=== PATIENT | female | born 1990 | race Caucasian/White ===

== ENCOUNTER 2021-05-25 02:01 | Emergency (ER) | payer BC, MEDICAID, SELFPAY ==
[2021-05-25 02:08] VITALS: BP 149/85; PULSE 79; RESP 22; TEMP 36.1; O2SAT 97; BMI 37.8
--- NOTE | 2021-05-25 02:17 | CTR_ITS ---
PROCEDURE INFORMATION: Exam: CT Abdomen And Pelvis With Contrast Exam date and time: 05/25/2021 3:13 AM Age: 31 years old Clinical indication: Abdominal pain; Generalized; Additional info: Abd pain TECHNIQUE: Imaging protocol: Computed tomography of the abdomen and pelvis with contrast. Radiation optimization: All CT scans at this facility use at least one of these dose optimization techniques: automated exposure control; mA and/or kV adjustment per patient size (includes targeted exams where dose is matched to clinical indication); or iterative reconstruction. Contrast material: OMNI 300; Contrast volume: 95 ml; Contrast route: INTRAVENOUS (IV); COMPARISON: No relevant prior studies available. RADIATION DOSE METRICS: Total DLP (mGy-cm): 1698.24 FINDINGS: Lungs: No consolidation. Pleuroparenchymal scarring noted in the right lung base. There is an irregular nodule in the right middle lobe measuring approximately 1.4 x 0.7 x 0.8 cm. There is 2 tiny nodules in the posterior left lower lobe, measuring 0.6 cm and 0.3 cm. No pleural effusion or pneumothorax. Liver: Normal. No mass. Gallbladder and bile ducts: Normal. No calcified stones. No ductal dilation. Pancreas: Normal. No ductal dilation. Spleen: Normal. No splenomegaly. Adrenal glands: Normal. No mass. Kidneys and ureters: There is a 0.4 cm obstructing stone in the left UVJ, resulting in mild hydronephrosis and delayed nephrogram. Slight stranding of the left perirenal fat is noted. The right kidney is unremarkable. Stomach and bowel: Unremarkable. No obstruction. No mucosal thickening. Appendix: No evidence of appendicitis. Intraperitoneal space: Unremarkable. No free air. No significant fluid collection. Vasculature: Unremarkable. No abdominal aortic aneurysm. Lymph nodes: Unremarkable. No enlarged lymph nodes. Urinary bladder: Unremarkable as visualized. Reproductive: Unremarkable as visualized. Bones/joints: Unremarkable. No acute fracture. Soft tissues: Unremarkable. CT/CT abdomen pelvis w con* [id number] IMPRESSION: 1. Left UVJ obstructing stone, resulting in mild hydronephrosis and delayed nephrogram. 2. Bilateral pulmonary nodules. Further evaluation with dedicated CT chest is recommended.
--- NOTE | 2021-05-25 02:18 | W.ED.ABDPA2 ---
HPI - Abdominal Pain General: Chief Complaint: Abdominal Pain Stated Complaint: abdominal pain Time Seen by Provider: 05/25/21 02:04 Source: patient Mode of arrival: ambulatory Limitations: no limitations History of Present Illness: 31-year-old female states she has been having epigastric abdominal pain also bandlike pain around her upper abdomen that started 4 hours ago. States she had multiple episodes of vomiting the pain is been cramping in nature rates it a 7 out of 10 she denies any diarrhea denies any worsening improving factors. No history of any abdominal surgeries. Denies any fevers. Associated Symptoms: Reports nausea and vomiting; Denies chills, dysuria and fever(s) Related Data: Date of Last Menstrual Period: 05/18/21 Review of Systems Const: Denies: fever(s), chills, body aches or change in appetite Eyes: Denies: blurry vision or eye discomfort ENMT: Denies: throat pain or dental pain Card: Denies: chest pain Resp: Denies: dyspnea GI: Reports: abdominal pain, nausea and vomiting : Denies: dysuria Musc: Denies: neck pain or back pain Skin/Breast: Denies: rash Neuro: Denies: headache(s) Psych: Denies: depression Jerad/Lymph: Denies: easy bruising All/Imm: Denies: urticaria PFSH ED PFSH: Social History Smoking and tobacco status: current every day smoker Female Reproductive History: Date of last menstrual period: 05/18/21 Physical Exam Const: COMMON NORMALS: no acute distress, patient oriented x3 and healthy appearing HENMT: COMMON NORMALS: normocephalic and atraumatic HEAD & SCALP: normocephalic and atraumatic Eye: COMMON NORMALS: Equal, round and reactive pupils present and EOMs intact bilaterally PUPIL: Yes Equal, round and reactive pupils present Neck/C-Spine: COMMON NORMALS: full ROM and supple Chest: COMMONS NORMALS: normal inspection of the chest and normal palpation of entire chest wall Resp: COMMON NORMALS: normal respiratory effort, No retractions, No use of accessory muscles and clear to auscultation bilaterally AUSCULTATION: clear to auscultation bilaterally Cardio: COMMON NORMALS: regular rate, regular rhythm and No murmurs present (Cardio) RATE: regular rate RHYTHM: regular rhythm GI: COMMON NORMALS: Normal to inspection, nondistended, normoactive bowel sounds present, Soft to palpation and no masses PALPATION: Yes Soft to palpation OTHER: Epigastric tenderness Extremity: COMMON NORMALS: normal to inspection and full ROM Neuro: COMMON NORMALS: patient oriented x3, moves all extremities and no focal motor deficits Psych: COMMON NORMALS: mental status grossly normal, Normal thought process present and cooperative THOUGHT PROCESS: Normal thought process present Skin: COMMON NORMALS: no rashes or lesions noted and no wounds GENERAL SKIN EXAM: no rashes or lesions noted Course Vital Signs: Vital signs: Vital Signs Temperature 97.0 F L 05/25/21 02:08 Pulse Rate 62 05/25/21 04:30 Respiratory Rate 15 05/25/21 04:30 Blood Pressure 107/65 05/25/21 04:30 Pulse Oximetry 96 05/25/21 04:30 MDM - Abdominal Pain Medical Decision Making Patient presents here with abdominal pain CT scan does show a kidney stone likely causing her pain. Pain is improved here will prescribe her [place] for home on Zofran did inform her pulmonary nodules as well she is to follow-up with pulmonology as well. Return if worsening. Lab Data : 05/25/21 02:24 05/25/21 02:24 Labs/Radiology: Radiology Impressions Abdomen/Pelvis CT 05/25/21 02:17 IMPRESSION: 1. Left UVJ obstructing stone, resulting in mild hydronephrosis and delayed nephrogram. 2. Bilateral pulmonary nodules. Further evaluation with dedicated CT chest is recommended. Laboratory Results WBC 11.6 10^3/uL (4.0-10.0) H 05/25/21 02:24 RBC 4.59 10^6/uL (4.1-5.3) 05/25/21 02:24 Hgb 14.9 g/dL (11.5-15.3) 05/25/21 02:24 Hct 43.1 % (37.0-47.0) 05/25/21 02:24 MCV 93.9 fl (81-99) 05/25/21 02:24 MCH 32.5 pg (28.0-34.0) 05/25/21 02:24 MCHC 34.6 g/dL (30.0-36.0) 05/25/21 02:24 RDW 13.2 % (12.1-15.1) 05/25/21 02:24 Plt Count 362 10^3/cmm (130-400) 05/25/21 02:24 MPV 10.2 fL (7.4-10.4) 05/25/21 02:24 Neut % (Auto) 59.5 % 05/25/21 02:24 Lymph % (Auto) 29.4 % 05/25/21 02:24 [place] % (Auto) 8.7 % 05/25/21 02:24 Eos % (Auto) 1.6 % 05/25/21 02:24 Baso % (Auto) 0.5 % 05/25/21 02:24 Neut # (Auto) 6.87 10^3/uL (1.8-7.7) 05/25/21 02:24 Lymph # (Auto) 3.4 10^3/uL (0.8-4.8) 05/25/21 02:24 [place] # (Auto) 1.0 10^3/uL (0.2-0.9) H 05/25/21 02:24 Eos # (Auto) 0.2 10^3/uL (0.0-0.8) 05/25/21 02:24 Baso # (Auto) 0.1 10^3/uL (0.0-0.1) 05/25/21 02:24 Nucleated RBC % (auto) 0 % 05/25/21 02:24 Nucleated RBCs # 0.0 /100WBC 05/25/21 02:24 Sodium 139 mmol/L (136-145) 05/25/21 02:24 Potassium 3.4 mmol/L (3.5-5.1) L 05/25/21 02:24 Chloride 102 mmol/L (98-107) 05/25/21 02:24 Carbon Dioxide 23 mmol/L (22-29) 05/25/21 02:24 Anion Gap 17.4 (5-19) 05/25/21 02:24 BUN 9 mg/dL (6-20) 05/25/21 02:24 Creatinine 1.0 mg/dL (0.5-0.9) H 05/25/21 02:24 GFR Calculation 64.7 mL/min (90-130) L 05/25/21 02:24 Glucose 129 mg/dL (65-115) H 05/25/21 02:24 Calculated Osmolality 288 mOsm/kg (285-295) 05/25/21 02:24 Calcium 10.1 mg/dL (8.5-10.5) 05/25/21 02:24 Total Bilirubin 0.3 mg/dL (0.15-1.2) 05/25/21 02:24 AST 17 U/L (0-32) 05/25/21 02:24 ALT 17 U/L (0-33) 05/25/21 02:24 Alkaline Phosphatase 120 IU/L (35-105) H 05/25/21 02:24 Total Protein 7.1 g/dL (6.6-8.7) 05/25/21 02:24 Albumin 4.6 g/dL (3.5-5.2) 05/25/21 02:24 Globulin 2.5 g/dL (1.3-4.6) 05/25/21 02:24 Lipase 19 U/L (13-60) 05/25/21 02:24 HCG, Qual Negative (Negative) 05/25/21 02:24 Urine Color Yellow (Yellow) 05/25/21 03:06 Urine Appearance Clear (CLEAR) 05/25/21 03:06 Urine pH 5 (5-7) 05/25/21 03:06 Ur Specific [place] 1.025 (1.005-1.030) 05/25/21 03:06 Urine Protein Neg (Negative) 05/25/21 03:06 Urine Glucose (UA) Norm (Normal) 05/25/21 03:06 Urine Ketones Negative (Negative) 05/25/21 03:06 Urine Blood 3+ (Negative) H 05/25/21 03:06 Urine Nitrate Negative (Negative) 05/25/21 03:06 Urine Bilirubin Neg (Negative) 05/25/21 03:06 Urine Urobilinogen 1 mg/dL (Negative) H 05/25/21 03:06 Ur Leukocyte Esterase Negative (Negative) 05/25/21 03:06 Urine RBC 15-25 /hpf (0-2) H 05/25/21 03:06 Urine WBC 10-15 /hpf (0-5) H 05/25/21 03:06 Ur Squamous Epith Cells 10-15 /hpf (0-5) H 05/25/21 03:06 Amorphous Sediment Not Reportable 05/25/21 03:06 Urine Bacteria Trace /hpf (NONE) 05/25/21 03:06 Urine Mucus 2+ /hpf 05/25/21 03:06 Discharge Plan Discharge Patient Disposition: Home Clinical Impression: Kidney stone, Pulmonary nodule Prescriptions: New hydrocodone-acetaminophen 5-325 mg tablet 1 tab PO Q6H PRN (Reason: pain) Qty: 14 0RF ondansetron 4 mg tablet,disintegrating 4 mg PO Q6H PRN (Reason: nausea and vomiting) Qty: 14 0RF Discharge Orders: Discharge ED (Routine); Ordered 05/25/21 Ordered By: Molina Lino Referrals: Perfecto Kimble MD [Physician] - 1-3 days Gregor Grider MD [Physician] - 1-3 days Discharge Diet: Advance as tolerated Discharge Activity: Resume usual activity Patient Instructions: Kidney Stones (ED), Pulmonary Nodules (ED), Opioid Safety Coding Level of Care Code ED Class C Driver for Chg Fwd Exam Comprehensive
[2021-05-25 02:22] VITALS: BP 145/97; PULSE 62; RESP 18; O2SAT 99
[2021-05-25] MEDS: ondansetron 2 mg/ML SDV 2 mL 4 MG IVP (02:39)
[2021-05-25 02:40] VITALS: RESP 19; O2SAT 97
[2021-05-25] MEDS: morphine 4 mg/mL SDV 1 mL IVP (02:40)
[2021-05-25] MEDS: sodium chloride 0.9% 1,000 ML 999 ML IV (02:40)
[2021-05-25 02:46] LABS: Basophils # 0.1 10^3/uL (0.0-0.1); Basophils % 0.5 %; Eosinophils # 0.2 10^3/uL (0.0-0.8); Eosinophils % 1.6 %; Hematocrit 43.1 % (37.0-47.0); Hemoglobin 14.9 g/dL (11.5-15.3); Lymphocytes # 3.4 10^3/uL (0.8-4.8); Lymphocytes % 29.4 %; Mean Corpuscular HGB Conc 34.6 g/dL (30.0-36.0); Mean Corpuscular Hemoglobin 32.5 pg (28.0-34.0); Mean Corpuscular Volume 93.9 fl (81-99); Mean Platelet Volume 10.2 fL (7.4-10.4); Monocytes % 8.7 %; Neutrophils # 6.87 10^3/uL (1.8-7.7); Neutrophils % 59.5 %; Nucleated Red Blood Cells % 0 %; Platelet Count 362 10^3/cmm (130-400); Red Blood Count 4.59 10^6/uL (4.1-5.3); Red Cell Distribution Width 13.2 % (12.1-15.1); White Blood Count 11.6 10^3/uL (4.0-10.0)
[2021-05-25 02:57] LABS: HCG, Serum Qual Negative (Negative)
[2021-05-25 03:03] LABS: Alanine Aminotransferase 17 U/L (0-33); Albumin Level 4.6 g/dL (3.5-5.2); Alkaline Phosphatase 120 IU/L (35-105); Anion Gap 17.4 (5-19); Aspartate Amino Transferase 17 U/L (0-32); Blood Urea Nitrogen 9 mg/dL (6-20); Calcium 10.1 mg/dL (8.5-10.5); Carbon Dioxide 23 mmol/L (22-29); Chloride 102 mmol/L (98-107); Globulin 2.5 g/dL (1.3-4.6); Glomerular Filtration Rate 64.7 mL/min (90-130); Glucose 129 mg/dL (65-115); Lipase 19 U/L (13-60); Osmolality Calculated 288 mOsm/kg (285-295); Potassium 3.4 mmol/L (3.5-5.1); Sodium 139 mmol/L (136-145); Total Bilirubin 0.3 mg/dL (0.15-1.2); Total Protein 7.1 g/dL (6.6-8.7)
[2021-05-25] MEDS: iohexol 300 mg/mL 100 mL Btl IV (03:13)
[2021-05-25] MEDS: metoclopramide 5 mg/mL SDV 2 mL 10 MG IVP (03:28)
[2021-05-25] MEDS: diphenhydrAMINE 50 mg/mL SDV 1mL IVP (03:29)
[2021-05-25 03:31] LABS: Add Urine Microscopic? YES; Bilirubin Urine Neg (Negative); Blood Urine 3+ (Negative); Glucose Urine UA Norm (Normal); Ketones Urine Negative (Negative); Leukocyte Esterase Urine Negative (Negative); Nitrate Urine Negative (Negative); Protein Urine Neg (Negative); Specific Gravity, Urine 1.025 (1.005-1.030); Urine Appearance Clear (CLEAR); Urine Color Yellow (Yellow); Urobilinogen Urine 1 mg/dL (Negative); pH Urine 5 (5-7)
[2021-05-25 03:32] LABS: Add Urine Culture? No; Bacteria Urine TRACE /hpf; Mucus Urine 2+ /hpf; RBC Urine 15-25 /hpf (0-2)
[2021-05-25 03:46] VITALS: BP 145/91; PULSE 53; RESP 16; O2SAT 96
[2021-05-25 04:30] VITALS: BP 107/65; PULSE 62; RESP 15; O2SAT 96
[2021-05-25 04:56] VITALS: BP 125/61; PULSE 53; RESP 16; O2SAT 97
--- NOTE | 2021-05-25 11:21 | DCPLANNER ---
Addendum entered by Sophia Vigil 06/23/21 20:26: Patient had a follow up appointment scheduled with [facility] - patient did attend appointment. Original Note: incident response manager had message to schedule a follow up appointment for patient with Dr. Kimble, urology. incident response manager sent patients information to the front staff at the urology clinic. Patients information will be printed and reviewed. Clinic will call patient with appointment information. incident response manager also had message to schedule a follow up appointment for patient with Dr. Grider at [facility], pulmonology. incident response manager sent patients information to the front staff at [facility]. Patients information will be printed and reviewed. Clinic will notify corrections caseworker of the scheduled appointment. incident response manager will call patient with appointment information.
--- NOTE | 2021-05-26 14:28 | DCPLANNER ---
Addendum entered by Sophia Vigil 05/28/21 11:26: field staff manager called patient and gave patient the appointment information. Original Note: Patient has a follow up appointment scheduled for May at 1:[address] Grider at [facility]. field staff manager called patient, unable to speak with patient at this time, a voicemail was left for patient to return correctional case records supervisor phone call. Patient has a follow up appointment scheduled for Wednesday, May 26, 2021 at 10:[address] Kimble - patient did not attend appointment.
== END 2021-05-25 04:53 | disposition home or self-care (01) ==
PROVIDERS: Emergency Provider Emergency Medicine
DX: N20.0 Calculus of kidney (principal); R91.8 Other nonspecific abnormal finding of lung field; F17.200 Nicotine dependence, unspecified, uncomplicated
CPT/HCPCS: 74177; 80053; 81001; 83690; 84703; 85025; 96361; 96374; 96375; 99284; J1200; J2270; J2405; J2765; J7030; Q9967

== ENCOUNTER → 2021-06-17 09:24 | Outpatient (BNVA) | payer BC, MEDICAID, SELFPAY | PROVIDERS: PCP Urology; Visit Provider Internal Medicine Critical Care Medicine | DX: R91.8 Other nonspecific abnormal finding of lung field (principal); R06.02 Shortness of breath; F17.210 Nicotine dependence, cigarettes, uncomplicated | CPT/HCPCS: 99204 ==

== ENCOUNTER 2021-10-02 06:26 | Observation (INO) | payer BC, MEDICAID, SELFPAY ==
[2021-10-02] VITALS (19 sets, daily range): BP systolic 92–149; BP diastolic 49–96; PULSE 49–82; RESP 12–25; TEMP 36.4–37.4; O2SAT 94–100; BMI 39.4
--- NOTE | 2021-10-02 06:48 | PM.HP ---
Providers/Chief Complaint Admitting Physician: Johnie Vick MD Primary Care Provider: Perfecto Kimble MD Chief Complaint: acute appendicitis History of Present Illness Ms. Audrey Hannah is a pleasant 31 year old female presents with worsening abdominal pain that started at the epigastric and periumbilical area and then started shifting to the right lower quadrant around 8 PM yesterday, as the pain got worse patient went to the emergency department of [facility] and undergone blood work and a CT scan of the abdomen pelvis. Patient describes the pain as being sharp just laying flat may help some and moving around makes it worse, associated with nausea and vomiting but no fevers or chills or dysuria or diarrhea, patient gives history of epilepsy and a previous left leg surgery and tubal ligation. Otherwise healthy except that she is having severe allergy to penicillin, she is a current smoker and has an obesity condition with a BMI of 39.5. Was contacted by the ER team to accept the patient for further intervention and I did. Reviewing the report sent with the patient per my request shows a WBC count of 21.9, hemoglobin 14.2, platelet count 298. Sodium 134, potassium 4.3, calcium 9.1, creatinine 1.73, glucose 111, serum albumin 4.1, AST 21, ALT 14 GFR more than 60. Urinalysis showed clear urine trace of leukocyte otherwise negative for nitrite and glucose. CT of the abdomen pelvis with contrast did show appendix is situated in the retrocecal position. There is focal inflammation in the distal third of the appendix, and the distalmost aspect appears gangrenous. A small poorly defined fluid collection is noted adjacent to the tip of the appendix. No evidence of pneumoperitoneum. No significant fluid collection. Patient was given ciprofloxacin and Flagyl per my request. Review of Systems General: Reports: 10 or more systems reviewed and unremarkable except in HPI and below Medications/Allergies Home Medications Medication Instructions Recorded Confirmed Last Taken Type topiramate 100 mg tablet (Topamax) 100 mg PO DAILY 10/02/21 10/02/21 09/29/21 08:00 History Allergies Allergy/AdvReac Type Severity Reaction Status Date / Time Latex, Natural Rubber Allergy Severe Unknown Verified 06/17/21 10:06 penicillin G Allergy Severe ALGY-Anaphy Verified 06/17/21 10:06 laxis Penicillins Allergy ALGY-Anaphy Verified 10/02/21 06:31 laxis PFSH Acute PFSH: Medical History Left ureteral stone Social History Smoking and tobacco status: current every day smoker (4 cigs day) cigarettes Packs smoked per day: 2 Years cigarettes smoked: 7 [ Other cigarette details: Started at age 16] Female Reproductive History: Date of last menstrual period: 05/18/21 Vitals/I&O/Wt Last Vital Signs Temp 98.3 F 10/02/21 06:37 Pulse 62 10/02/21 06:37 Resp 16 10/02/21 06:37 BP 121/84 10/02/21 06:37 Pulse Ox 94 10/02/21 06:37 O2 Del Method 10/02/21 06:37 Weight last 48 hrs Weight 215 lb 11.2 oz Physical Exam Narrative: Patient is conscious alert oriented X3 No apparent distress BMI 39.5 Head and neck examination PERRLA no masses no cervical lymphadenopathy no jaundice Cardiac examination audible S1-S2 no murmurs no gallops no arrhythmias Chest is clear bilateral,abscence of Rhonchi or wheezes,no surgical emphysema Abdomen right lower quadrant shows maximal tenderness with localized rigidity at McBurney's point consistent with acute appendicitis, otherwise nontender nondistended soft no organomegaly guarding or rigidity/no signs of peritonitis, obese. Extremities no cyanosis no clubbing no edema A&P Assessment and plan (1) Acute appendicitis: After thorough history physical examination and reviewing the chart from the outside facility and images with my personal interpretion, I counseled the patient for laparoscopic appendectomy possible open. Indications, risks, benefits and alternatives were all discussed with the patient and did agree to proceed. Rationale was carefully and clearly discussed with the patient.Appropriate informed consent have been reviewed and signed Status: Acute (2) Seizure: We will plan to resume home medications once we know the exact medication and dose. Will consult pharmacy for medication reconciliation We will give the patient n.p.o. IV fluids in the form of LR 150 mL/h Will resume ciprofloxacin and Flagyl Vital signs per unit protocol Repeat labs in the morning in the form of CBC and BMP Pharmacologic DVT prophylaxis Assurance and education All questions have been answered and all concerns have been addressed to patient's satisfaction. Status: Acute Attestations Medical Necessity Statement*: Observation status for perioperative care Time Spent in Patient Care: 16 - 35 minutes Coding Level of Care Code Acute Statue Maker for [facility] Diagnoses Acute appendicitis K35.80 Seizure R56.9
[2021-10-02] MEDS: lactated ringers 1,000 ML 150 ML IV (07:02)
--- NOTE | 2021-10-02 07:56 | ANE.PACU2 ---
Inpatient post-anesthesia follow up: Airway intact: Yes Vital signs: Temperature 98.1 F Pulse Rate 61 Respiratory Rate 16 Blood Pressure 127/82 Pulse Oximetry 98 Oxygen Delivery Me thod Room Air Oxygen Flow Rate 3 Fraction of Inspir ed Oxygen Hydration adequate: Yes Nausea and vomiting: No Pain level: 1 Mental status: Baseline
[2021-10-02] MEDS: sodium chloride 0.9% 1,000 ML 30 ML IV (08:36)
--- NOTE | 2021-10-02 08:49 | ANES.PREANE2 ---
Pre-Anesthetic Assessment Height/Weight: Height 1.57 m Weight 97.84 kg Temp Pulse Resp BP Pulse Ox O2 Del Method 98.3 F 58 L 16 119/81 98 10/02/21 07:40 10/02/21 07:40 10/02/21 07:40 10/02/21 07:40 10/02/21 07:40 10/02/21 07:40 Operation Date: 10/02/21 09:05 Proposed Procedures p Laparoscopic Appendectomy(Not Applicable) - Johnie Vick MD Familial anesthetic complications: None Was Beta Shena taken within 24 hours: N/A Was Clonidine taken within 24 hours: N/A Last intake: Intake Last Liquid Date 10/01/21 Last Liquid Time 00:00 Last Solid Date 10/01/21 Last Solid Time 19:00 Social Tobacco and No alcohol Exam alert, oriented x 3, clear to auscultation bilaterally and regular rate & rhythm Airway Mallampati: Class III Dentition: full Metabolic Morbid Obesity Anesthetic Plan ASA status: 2 Anesthesia: General Risk of > 500 ml blood loss (7ml/kg in children): No Medications/Allergies Home Medications Medication Instructions Recorded Confirmed Last Taken Type topiramate 100 mg tablet (Topamax) 100 mg PO DAILY 10/02/21 10/02/21 09/29/21 08:00 History Allergies Allergy/AdvReac Type Severity Reaction Status Date / Time Latex, Natural Rubber Allergy Severe Unknown Verified 06/17/21 10:06 penicillin G Allergy Severe ALGY-Anaphy Verified 06/17/21 10:06 laxis Penicillins Allergy ALGY-Anaphy Verified 10/02/21 06:31 laxis Current Medications Generic Name Dose Route Start Last Admin Trade Name Freq PRN Reason Stop Dose Admin Lactated Ringer's 1,000 mls @ 150 mls/hr 10/02/21 06:45 10/02/21 07:02 Lactated Ringers IV 150 mls/hr .[id number] KIRSTEN Administration PFS Anesthesia Medical History Left ureteral stone Social History Smoking and tobacco status: current every day smoker (4 cigs day) cigarettes Packs smoked per day: 2 Years cigarettes smoked: 7 [ Other cigarette details: Started at age 16] Female Reproductive History Date of last menstrual period: 05/18/21 Data Anesthesia Cardiac Studies: No Data to Display
[2021-10-02] MEDS: scopolamine 1.5 Patch 1 PATCH TRANSDERMA (08:55)
[2021-10-02] MEDS: acetaminophen 1,000 MG/100 ML PIGGYBACK 400 MG IV (09:00)
[2021-10-02] MEDS: heparin 5,000 unit/mL INJ 1 mL 3000 UNIT SUBCUT (09:06)
[2021-10-02] MEDS: metroNIDAZOLE IV 500 MG/100 ML PREMIX 100 MG IV ×2 (09:30→17:43)
[2021-10-02] MEDS: lidocaine 1% INJ 20 mL INJECTION (10:12)
--- NOTE | 2021-10-02 10:23 | P.OP_ITS ---
Operative Report Date of procedure: October 02, 2021 Pre-op diagnosis: Preop Diagnosis Acute appendicitis Post-op diagnosis: Retrocecal appendicitis with adhesions Post-op findings: Omental fat necrosis but no evidence of gangrene Procedure done: 1-Laparoscopic appendectomy 2-Laparoscopic repair of umbilical hernia primarily Specimens removed/disposition: Appendix and hernia sac and contents Surgeon: Johnie Vick MD Casino Games Dealer: Surgical daljit Plasencia Circulating nurse Micaela hernández Anesthesia: General (Dr. Guadalupe and MAGY Saha) Estimated blood loss (mL): 10 IV fluids (mL): 800 Procedure: Patient after being identified in the holding area and asked to void urine, and informed consent per chart ,patient was then taken back to the OR placed in supine position got intubated by anesthesia left arm was tucked tucked ,Timeout was done verifying the patient's name/date of /planned procedure and destination after the procedure, all were in agreement., preoperative antibiotics administered per protocol. prep and drape of the abdomen was done under the usual sterile technique. Started by longitudinal skin incision supraumbilical, she was found to have an umbilical hernia that was dissected and preperitoneal fat was excised and sent out for permanent pathology. Fascial defect was less than 1 inch. following th at using a Elizondo trocar technique safe entry to the abdominal cavity was achieved verified by using 10 mm zero degree laparoscopy there was no evidence of injury or bleeding or succus, the scope was then switched to a 30? scope under direct visualization a suprapubic 5 mm trocar was inserted followed by another 5 mm trocar inserted in the left lower quadrant. I was able to position the patient in an T Chan and left side down, dissection of the prececal acutely inflamed appendix there was some adhesions towards the lateral pelvic wall that was taken down by sharp and blunt dissection, noticed bulky mesoappendix with fat necrosis and a LigaSure device was used to take the mesoappendix down safely under direct visualization, attention was deviated to the healthy base of the appendix where I had to switch the camera to 5 mm 30? scope got introduced through the left lower quadrant and through the Elizondo trocar under direct visualization a GI stapler 45 mm blue load was applied at the healthy part of the base of the appendix , the appendix was then retrieved in an Endo Catch bag, final survey was done of the abdomen and pelvis , irrigation with warm saline, and suction was obtained. Multiple 5 mm clips were applied onto the mesoappendix as well as the appendectomy staple line and a right lateral pelvic wall for minimal oozing. Final look laparoscopy was done showing no other abnormalities or injuries, all trocars were taken out under direct visualization after the supraumblical fascial defect of the umbilical hernia /trocar site was closed by #1 PDS sutures under direct vision using fascial closure device ,followed by skin closure using 4-0 Monocryl of all trocar site incisions. infiltration of local lidocaine 2% was done to all incision sites.Dry dressing was applied. Count was completed at the end of the procedure for [place] , sponges and instruments Patient tolerated the procedure well and was transferred to the recovery area after extubation. I was present for the whole entire procedure
--- NOTE | 2021-10-02 10:36 | SUR.PHASEI ---
1029 PT TO PACU SLEEPY WITH GOOD RESPIRATORY EFFORT NOTED SATS ON 3LNC 97-98% WITH NO DISTRESS, ABDOMEN IS SOFT WITH 3 SITES WITH SKIN GLUE, REGULAR ICE PACK TO ABDOMEN, MONITOR SHOWING SR NO ECTOPY, VSS IV TO LT FA 322 PATENT OF NS 200ML UP AT KVO RATE PER GRAVITY, PT HAS #22 TO RT FA THAT IS PIID WELL BILAT SCDS ON PT. PT ID BAND TO LT WRIST , PT ID'D WITH 2 IDENTIFERS.
--- NOTE | 2021-10-02 10:43 | SUR.PHASEI ---
PT AWAKES TO VOICE, PT NODS HEAD YES TO ABDOMENAL PAIN QUESTION, PT STATES (JUST A LITTLE BIT) PT UNABLE TO GIVE NUMBER AT THIS TIME, PT QUICKLY BACK TO SLEEP WITH NO VISUAL S/S OF PAIN, VSS MONITOR UNCHANGED , SURGICAL SITE UNCHANGED,
--- NOTE | 2021-10-02 11:12 | SUR.PHASEI ---
PT TO FLOOR PER CART PT AWAKE ALERT TALKATIVE WITH NURSE ROMERO AT BEDSIDE HANDOFF, ABDOMEN SOFT AND SITES UNCHANGED.
[2021-10-02] MEDS: HYDROcodone-acetaminophen 5-325 mg Tablet 1 TAB PO ×2 (11:44→17:15)
[2021-10-02] MEDS: famotidine 20 mg/2 mL INJ IVP ×2 (11:44→21:48)
[2021-10-02] MEDS: ciprofloxacin 400 MG/200 ML PREMIX 200 MG IV (16:47)
[2021-10-02] MEDS: lactated ringers 1,000 ML 100 ML IV (17:43)
[2021-10-02] MEDS: topiramate 100 mg Tablet PO (21:48)
[2021-10-03] MEDS: heparin 5,000 unit/mL INJ 1 mL 5000 UNIT SUBCUT (00:30)
[2021-10-03] MEDS: metroNIDAZOLE IV 500 MG/100 ML PREMIX 100 MG IV (00:31)
[2021-10-03] MEDS: HYDROcodone-acetaminophen 5-325 mg Tablet 1 TAB PO (00:36)
[2021-10-03 03:11] VITALS: BP 110/71; PULSE 51; RESP 16; TEMP 36.7; O2SAT 96
[2021-10-03] MEDS: ciprofloxacin 400 MG/200 ML PREMIX 200 MG IV (04:18)
[2021-10-03] MEDS: lactated ringers 1,000 ML 100 ML IV (04:22)
[2021-10-03 04:48] LABS: Basophils % 0.2 %; Eosinophils % 0.3 %; Hematocrit 37.3 % (37.0-47.0); Lymphocytes # 3.1 10^3/uL (0.8-4.8); Lymphocytes % 22.6 %; Mean Corpuscular HGB Conc 32.2 g/dL (30.0-36.0); Mean Corpuscular Volume 99.5 fl (81-99); Mean Platelet Volume 10.7 fL (7.4-10.4); Monocytes % 7.7 %; Neutrophils # 9.31 10^3/uL (1.8-7.7); Neutrophils % 68.7 %; Nucleated Red Blood Cells % 0 %; Platelet Count 276 10^3/cmm (130-400); Red Blood Count 3.75 10^6/uL (4.1-5.3); Red Cell Distribution Width 14.2 % (12.1-15.1); White Blood Count 13.6 10^3/uL (4.0-10.0)
[2021-10-03 05:23] LABS: Anion Gap 11.7 (5-19); Blood Urea Nitrogen 6 mg/dL (6-20); Calcium 8.9 mg/dL (8.5-10.5); Carbon Dioxide 24 mmol/L (22-29); Chloride 108 mmol/L (98-107); Glomerular Filtration Rate 116.6 mL/min (90-130); Glucose 102 mg/dL (65-115); Osmolality Calculated 288 mOsm/kg (285-295); Potassium 3.7 mmol/L (3.5-5.1); Sodium 140 mmol/L (136-145)
--- NOTE | 2021-10-03 07:51 | P.SS_ITS ---
Short Stay Summary Providers Date of Admit/Discharge: 10/03/21 Attending Provider: Johnie Vick MD Primary Care Provider: Perfecto Kimble MD Chief Complaint: Abdominal pain HPI History of Present Illness Ms. Audrey Hannah is a pleasant 31 year old female presents with worsening abdominal pain that started at the epigastric and periumbilical area and then started shifting to the right lower quadrant around 8 PM yesterday, as the pain got worse patient went to the emergency department of [facility] [place] and undergone blood work and a CT scan of the abdomen pelvis. Patient describes the pain as being sharp just laying flat may help some and moving around makes it worse, associated with nausea and vomiting but no fevers or chills or dysuria or diarrhea, patient gives history of epilepsy and a previous left leg surgery and tubal ligation.? Otherwise healthy except that she is having severe allergy to penicillin, she is a current smoker and has an obesity condition with a BMI of 39.5. Was contacted by the ER team to accept the patient for further intervention and I did. Reviewing the report sent with the patient per my request shows a WBC count of 21.9, hemoglobin 14.2, platelet count 298.? Sodium 134, potassium 4.3, calcium 9.1, creatinine 1.73, glucose 111, serum albumin 4.1, AST 21, ALT 14 GFR more than 60.? Urinalysis showed clear urine trace of leukocyte otherwise negative for nitrite and glucose. CT of the abdomen pelvis with contrast did show appendix is situated in the retrocecal position.? There is focal inflammation in the distal third of the appendix, and the distalmost aspect appears gangrenous.? A small poorly defined fluid collection is noted adjacent to the tip of the appendix.? No evidence of pneumoperitoneum.? No significant fluid collection.? Patient was given ciprofloxacin and Flagyl per my request. Patient undergone uneventful laparoscopic appendectomy and was kept for observation to get the benefit of parenteral antimicrobial therapy Review of Systems General: Reports: 10 or more systems reviewed and unremarkable except in HPI and below Home Meds/Allergies Home Medications and Allergies Home Medications Medication Instructions Recorded Confirmed Type topiramate 100 mg tablet (Topamax) 100 mg PO DAILY 10/02/21 10/02/21 History Allergies Allergy/AdvReac Type Severity Reaction Status Date / Time Latex, Natural Rubber Allergy Severe Unknown Verified 06/17/21 10:06 penicillin G Allergy Severe ALGY-Anaphy Verified 06/17/21 10:06 laxis Penicillins Allergy ALGY-Anaphy Verified 10/02/21 06:31 laxis PFSH Acute PFSH: Medical History (Updated 10/03/21 @ 07:52 by Johnie Vick MD) Acute appendicitis Left ureteral stone Social History Smoking and tobacco status: current every day smoker (4 cigs day) cigarettes Packs smoked per day: 2 Years cigarettes smoked: 7 [ Other cigarette details: S tarted at age 16] Female Reproductive History: Date of last menstrual period: 05/18/21 Vitals/I&O/Wt Last Vital Signs Temp 98.1 F 10/03/21 03:11 Pulse 51 L 10/03/21 03:11 Resp 16 10/03/21 03:11 BP 110/71 10/03/21 03:11 Pulse Ox 96 10/03/21 03:11 O2 Del Method 10/03/21 03:11 O2 Flow Rate 3 10/02/21 10:50 10/02/21 10/03/21 10/03/21 22:59 06:59 14:59 Intake Total 2660 / 3100 1780 / 4880 Balance 2660 / 3090 1780 / 4870 Weight last 48 hrs Weight 215 lb 11.2 oz Weight 215 lb 7 oz Physical Exam Narrative: Patient is conscious alert oriented X3 No apparent distress BMI 39.5 Head and neck examination PERRLA no masses no cervical lymphadenopathy no jaundice Abdomen nontender nondistended soft no organomegaly guarding or rigidity/no signs of peritonitis Incisions are clean dry and intact Extremities no cyanosis no clubbing no edema Hospital Course Hospital Course Patient undergone uneventful laparoscopic appendectomy. And was found to have more necrosis of the mesentery of the appendix rather than gangrene of the appendix. Appendectomy was performed and patient was kept for observation and continued to have adequate urine output and stable vital signs. Component of bradycardia without symptoms, adequate urine output and tolerating p.o. intake and in fact she did have a bowel movement and passing gas, bending down of leukocytosis to 13,000 plus, otherwise unremarkable lab values. Patient maintained to be ambulatory and is receiving pharmacologic DVT prophylaxis, appropriate education was given to the patient for cessation of smoking. Patient will be discharged on ciprofloxacin and Flagyl. Discharge Summary Patient met the appropriate and safe criteria to be discharged home. Educated the patient about refraining from heavy lifting with specific instructions, will advance diet to full liquid prior to discharge home. SSS Data Data Completed and Pending: Pending at discharge Category Date Time Status ES surgery / GI i mages Routine Exams 10/02/21 08:12 Ordered Basic Metabolic P latasha AM LABS Lab 10/04/21 04:00 Ordered Basic Metabolic P latasha AM LABS Lab 10/05/21 04:00 Ordered Complete Blood Co unt w/Auto AM LABS Lab 10/04/21 04:00 Ordered Complete Blood Co unt w/Auto AM LABS Lab 10/05/21 04:00 Ordered Pathology: Surgic al [PTH] Routine Pth 10/02/21 10:19 Ordered Procedures Performed: Preop Diagnosis ? Acute appendicitis? Post-op diagnosis: Retrocecal appendicitis with adhesions Post-op findings: Omental fat necrosis but no evidence of gangrene Procedure done: 1-Laparoscopic appendectomy 2-Laparoscopic repair of umbilical hernia primarily Specimens removed/disposition: Appendix and hernia sac and contents Surgeon: Johnie Vick MD Inspector Optical Instrument: Surgical daljit Plasencia Circulating nurse Micaela hernández Anesthesia: General (Dr. Guadalupe and MAGY Saha) Estimated blood loss (mL): 10 IV fluids (mL): 800 Procedure: Patient after being identified in the holding area and asked to void urine, and informed consent per chart ,patient was then taken back to the OR placed in supine position got intubated by anesthesia left arm was tucked tucked ,Timeout was done verifying the patient's name/date of /planned procedure? and destination after the procedure, all were in agreement., preoperative antibiotics administered per protocol. prep and drape of the abdomen was done under the usual sterile technique. Started by longitudinal skin incision supraumbilical, she was found to have an umbilical hernia that was dissected and preperitoneal fat was excised and sent out for permanent pathology.? Fascial defect was less than 1 inch. following that using a Elizondo trocar technique safe entry to the abdominal cavity was achieved verified by using 10 mm zero degree laparoscopy there was no evidence of injury or bleeding or succus, the scope was then switched to a 30? scope under direct visualization a? suprapubic 5 mm trocar was inserted followed by another 5 mm trocar inserted in the left lower quadrant. I was able to position the patient in an T Chan and left side down, dissection of the prececal acutely inflamed appendix there was some adhesions towards the lateral pelvic wall that was taken down by sharp and blunt dissection, noticed bulky mesoappendix with fat necrosis and a LigaSure device was used to take the mesoappendix down safely under direct visualization, attention was deviated to the healthy base of the appendix where I had to switch the camera to 5 mm 30? scope got introduced through the left lower quadrant and through the Elizondo trocar under direct visualization a GI stapler 45 mm blue load was applied at the healthy part of the base of the appendix , the appendix was then retrieved in an Endo Catch bag, final survey was done of the abdomen and pelvis , irrigation with warm saline, and suction was obtained. Multiple 5 mm clips were applied onto the mesoappendix as well as the appendectomy staple line and a right lateral pelvic wall for minimal oozing. Final look laparoscopy was done showing no other abnormalities or injuries, all trocars were taken out under direct visualization after the supraumblical fascial defect of the umbilical hernia /trocar site was closed by #1 PDS sutures under direct vision using fascial closure device ,followed by skin closure using 4-0 Monocryl of all trocar site incisions.? infiltration of local lidocaine 2% was done to all incision sites.Dry dressing was applied. Count was completed at the end of the procedure for [place] , sponges and instruments Patient tolerated the procedure well and was transferred to the recovery area after extubation. I was present for the whole entire procedure Dictated By: Johnie Vick MD Signed By: Johnie Vick MD Diagnoses at Discharge Discharge Diagnosis (1) Acute appendicitis: Status: Resolved (2) Seizure: Status: Acute Discharge Plan Discharge Patient Disposition: Home Condition: Stable Prescriptions: New Cipro 500 mg tablet 500 mg PO Q12H 5 Days Qty: 10 0RF metronidazole 500 mg tablet 500 mg PO Q8H 5 Days Qty: 15 0RF hydrocodone-acetaminophen 5-325 mg tablet 1 tab PO Q6H PRN (Reason: pain) Qty: 28 0RF Continued Topamax 100 mg Tablet 100 mg PO DAILY Discharge Orders: Discharge Order (Routine); Ordered 10/03/21 Ordered By: Johnie Vick Referrals: Johnie Vick MD [Physician] - (Return to surgery office in 10 days) Discharge Diet: Advance as tolerated Discharge Activity: Limit activity as instructed Patient Instructions: Ciprofloxacin (By mouth), Hydrocodone/Acetaminophen (By mouth), Metronidazole (By mouth), Appendicitis (GEN), Cigarette Smoking and Your Health (GEN), Decision Aid for Lung Cancer Screening (GEN), Laparoscopic Appendectomy (GEN), Opioid Safety, Post Anesthesia Care, Quitting Smoking, Epilepsy in Older Adults (ED) Activity Restrictions/Additional Instructions: 1. Patient can shower after 48 hours from surgery 2. Remove Dermabond 7 to 10 days after surgery, if there is a secondary dressing can take down after 48 hours. 3. Up and walking as tolerated 4. Do not lift more than 5 pounds first 2 weeks after surgery and not more than 25 pounds 6 to 8 weeks after surgery. 5. Do not operate heavy machinery or drive while using pain medications. 6.Contact the office or return to the ER for worsening nausea vomiting fevers or chills, or noticing any redness around incision sites or discharge. 7. Cessation of smoking Attestations Medical Necessity Statement*: Observation status for perioperative care to resume bowel benefit from parenteral antimicrobial therapy Time Spent in Patient Care*: greater than 30 min Time Spent in Smoking Cessation: Time spent discussing smoking cessation with patient: more than 10 minutes Specific Discharge Activities: Specific discharge activities: educating patient and educating and/or supporting family/caregiver Status at Discharge: Cognitive status at discharge: cognitively intact , Behavioral status at discharge: cooperative , Functional status at discharge: independent ambulation Overall status at discharge: patient is progressing back to baseline Quality Metrics Clinical Quality Measures: [ No reported AMI, CVA or VTE this stay ] Coding Level of Care Code Acute Cuff Matcher for g Fwd Diagnoses Acute appendicitis K35.80 Seizure R56.9
[2021-10-03 07:54] VITALS: BP 127/82; PULSE 61; RESP 16; TEMP 36.7; O2SAT 98
== END 2021-10-03 08:45 | disposition home or self-care (01) ==
PROVIDERS: Absent Provider Surgery; Admitting Provider Surgery; PCP Urology; Visit Provider Surgery
PROC: 0DTJ4ZZ Resection of Appendix, Percutaneous Endoscopic Approach (ICD-10-PCS; CPT 44970; principal; 2021-10-02 08:45)
DX: K35.30 Acute appendicitis with localized peritonitis, without perforation or gangrene (principal); K42.9 Umbilical hernia without obstruction or gangrene; F17.210 Nicotine dependence, cigarettes, uncomplicated; R56.9 Unspecified convulsions; E66.01 Morbid (severe) obesity due to excess calories; Z68.39 Body mass index [BMI] 39.0-39.9, adult
CPT/HCPCS: 44970; 49585; 36415; 80048; 85025; 88302; 88304; 96372; G0378; G0379; J0330; J0744; J1100; J1644; J2250; J2405; J2704; J2710; J3010; J3490; J7030; S0030

== ENCOUNTER 2022-08-09 21:13 | Emergency (ER) | payer BC, MEDICAID, SELFPAY ==
--- NOTE | 2022-08-09 21:14 | XRR_ITS ---
PROCEDURE INFORMATION: Exam: XR Right Foot Exam date and time: 08/09/2022 8:19 PM Age: 32 years old Clinical indication: Pain; Foot; Right; Additional info: Injury TECHNIQUE: Imaging protocol: Radiologic exam of the right foot. Views: 3 or more views. COMPARISON: No relevant prior studies available. FINDINGS: Bones/joints: Normal. Soft tissues: Normal. XR/XR foot RT min 3V* [id number] IMPRESSION: No acute findings.
[2022-08-09 21:20] VITALS: BP 125/67; PULSE 82; RESP 16; TEMP 37.1; O2SAT 98; BMI 31.4
--- NOTE | 2022-08-09 21:27 | ED_ITS ---
HPI - Extremity Problem General: Chief complaint: Extremity Injury, Lower Stated complaint: Right foot injury Time Seen by Provider: 08/09/22 21:27 History of Present Illness: 32-year-old female was working at home this evening and dropped a block of wood onto her right foot. Patient noticed some bruising and swelling was concerned she might have fractured it. Patient reports history of seizures which she takes Topamax. Patient is nontoxic. Patient has some mild swelling and bruising to the dorsal right foot. Associated symptoms: Deny fever(s) or rash Review of Systems General: Reports: 10 or more systems reviewed and unremarkable except in HPI and below Const: Denies: fever(s) Musc: Reports: extremity pain and extremity swelling Skin/Breast: Denies: rash PFSH ED PFSH: Medical History (Updated 08/09/22 @ 21:29 by HOPE Randolph) Acute appendicitis Left ureteral stone Social History Smoking and tobacco status: current every day smoker (4 cigs day) cigarettes Packs smoked per day: 2 Years cigarettes smoked: 7 [ Other cigarette details: Started at age 16] Female Reproductive History: Date of last menstrual period: 08/07/22 Physical Exam Const: COMMON NORMALS: alert HENMT: COMMON NORMALS: normocephalic HEAD & SCALP: normocephalic Neck/C-Spine: COMMON NORMALS: full ROM Resp: COMMON NORMALS: normal respiratory effort Cardio: COMMON NORMALS: regular rate RATE: regular rate Extremity: RIGHT LOWER EXTREMITY: Yes foot & digits (Dorsal right foot has some mild swelling and bruising) Neuro: SENSORIUM/ORIENTATION: Yes alert Skin: COMMON NORMALS: turgor normal GENERAL SKIN EXAM: turgor normal Course Vital Signs: Vital signs: Vital Signs Temperature 98.8 F 08/09/22 21:20 Pulse Rate 82 08/09/22 21:20 Respiratory Rate 16 08/09/22 21:20 Blood Pressure 125/67 08/09/22 21:20 Pulse Oximetry 98 08/09/22 21:20 MDM - Extremity (Nontraumatic) Medical Decision Making 32-year-old female comes in today for complaints of injury to the right foot. On exam patient has some mild swelling and bruising. Cap refill is intact. Patient is weightbearing. Differential diagnosis includes contusion, fracture, dislocation. X-ray was unremarkable. Reviewed exam with patient with recommendations for treatment and follow-up. Patient reported understanding and agreed to plan. Discharge Plan Discharge Patient Disposition: Home Clinical Impression: Contusion of foot Qualifiers: Encounter type: initial encounter Laterality: right Qualified Code(s): S90.31XA - Contusion of right foot, initial encounter Condition: Stable Prescriptions: No Action Topamax 100 mg Tablet 100 mg PO DAILY hydrocodone-acetaminophen 5-325 mg tablet 1 tab PO Q6H PRN (Reason: pain) Qty: 28 0RF Discharge Orders: Discharge ED (Routine); Ordered 08/09/22 Ordered By: Christopher Fairbanks Referrals: Perfecto Kimble MD [Primary Care Provider] - Discharge Diet: Usual diet Discharge Activity: Increase activity as tolerated Patient Instructions: Foot Contusion (ED) Activity Restrictions/Additional Instructions: Use an elastic bandage for comfort. Use ice for further pain relief. Use acetaminophen and ibuprofen to control pain. Activity as tolerated. Follow-up with primary care for further instructions. Return to ED for new concerns. Stand Alone Forms: Work/School Release Coding Level of Care Code ED [employer] for Jose Sullivan
== END 2022-08-09 21:42 | disposition home or self-care (01) ==
PROVIDERS: Emergency Provider Nurse Practitioner Family; PCP Urology
DX: S90.31XA Contusion of right foot, initial encounter (principal); F17.210 Nicotine dependence, cigarettes, uncomplicated; W20.8XXA Other cause of strike by thrown, projected or falling object, initial encounter
CPT/HCPCS: 73630; 99283